=== PATIENT | female | born 2000 | race Caucasian/White ===

== ENCOUNTER 2019-05-16 15:43 | Emergency (ER) | payer OTHER ==
[~2019-05-16] VITALS: Ht 165.1 cm; Wt 68.8 kg
[2019-05-16] MEDS ORDERED: SODIUM CHLORIDE 0.9% 1,000ML IVBOLUS ONE (16:30)
[2019-05-16] MEDS ORDERED: HYDROmorphone 1 MG/ML, 1ML INJ IVPush PRN (16:30)
[2019-05-16] MEDS ORDERED: HYDROmorphone 1 MG/ML, 1ML VIAL ONE (16:42)
--- NOTE | 2019-05-16 16:45 | NUR ---
PT HAS BEEN ILL FOR SEVERAL WEEKS AND ON A FEW COURSES OF ANTIBIOTICS. SHE WAS DX WITH BRONCHITIS, THEN A SINUS INFECTION. PT HAD A FEVER OF 102 THIS WEEKEND AND STATES SHE ESPECIALLY FEELS LIKE SHE IS FEVERISH AT NIGHT. PT NOW HAS SWOLLEN GLANDS IN THROAT.
[2019-05-16 16:46] LABS: BASOPHILS # (AUTO) 0.03 x10^3/uL (0-0.3); BASOPHILS % (AUTO) 0 % (0-1); EOSINOPHILS # (AUTO) 0.02 x10^3/uL (0-0.8); EOSINOPHILS % (AUTO) 0 % (1-7); LYMPHOCYTES # (AUTO) 1.22 x10^3/uL (1-6.1); LYMPHOCYTES % (AUTO) 11 % (22-44); MD NO; MEAN CORPUSCULAR HEMOGLOBIN 31.3 pg (27.0-34.8); MEAN CORPUSCULAR HGB CONC 33.3 g/dL (32.4-35.8); MEAN CORPUSCULAR VOLUME 93.9 fL (80-100); MEAN PLATELET VOLUME 8.6 fL (7.4-10.4); MONOCYTES # (AUTO) 0.42 x10^3/uL (0-1.4); MONOCYTES % (AUTO) 4 % (2-9); NEUTROPHILS % (AUTO) 85 % (42-75); PLATELET COUNT 263 x10^3/uL (130-400); RED BLOOD COUNT 5.05 x10^6/uL (3.82-5.3); RED CELL DISTRIBUTION WIDTH 13.2 % (9.6-15.2)
[2019-05-16 16:58] LABS: ALANINE AMINOTRANSFERASE 34 U/L (12-78); ALBUMIN 4.1 g/dL (3.4-5.0); ANION GAP 7 mmol/L (5-15); CALCIUM 9.2 mg/dL (8.5-10.1); CHLORIDE 105 mmol/L (98-107); CREATININE 0.95 mg/dL (0.55-1.02)
[2019-05-16 17:01] LABS: ALKALINE PHOSPHATASE 105 U/L (45-117); BILIRUBIN,TOTAL 0.6 mg/dL (0.2-1.0); TOTAL PROTEIN 8.4 g/dL (6.4-8.2)
--- NOTE | 2019-05-16 17:08 | NUR ---
MEDICATED PER MAR AND IV FLUIDS INFUSING. SISTER AT BEDSIDE.
--- NOTE | 2019-05-16 17:58 | NUR ---
PAIN IMPROVED SINCE MEDICATED FOR SAME. AWAITING RE-EVAL
[2019-05-16 18:52] VITALS: BP 111/74
== END 2019-05-16 18:54 | disposition home or self-care (01) ==
LOC: ED 17:06
DX: L04.0 Acute lymphadenitis of face, head and neck (principal); R50.9 Fever, unspecified
CPT/HCPCS: 36415; 80053; 83605; 85025; 86308; 87040; 96374; 99283; J1170; J7030

== ENCOUNTER 2019-11-06 08:50 | Emergency (ER) | payer OTHER ==
[~2019-11-06] VITALS: Ht 165.1 cm; Wt 77.1 kg
[2019-11-06 08:58] VITALS: BP 129/93
[2019-11-06 09:57] LABS: BASOPHILS # (AUTO) 0.08 x10^3/uL (0-0.3); BASOPHILS % (AUTO) 1 % (0-1); EOSINOPHILS # (AUTO) 0.12 x10^3/uL (0-0.8); EOSINOPHILS % (AUTO) 2 % (1-7); LYMPHOCYTES # (AUTO) 2.41 x10^3/uL (1-6.1); LYMPHOCYTES % (AUTO) 37 % (22-44); MD NO; MEAN CORPUSCULAR HEMOGLOBIN 30.7 pg (27.0-34.8); MEAN CORPUSCULAR HGB CONC 32.8 g/dL (32.4-35.8); MEAN CORPUSCULAR VOLUME 93.4 fL (80-100); MEAN PLATELET VOLUME 9.3 fL (7.4-10.4); MONOCYTES # (AUTO) 0.37 x10^3/uL (0-1.4); MONOCYTES % (AUTO) 6 % (2-9); NEUTROPHILS # (AUTO) 3.58 x10^3/uL (1.8-8.0); NEUTROPHILS % (AUTO) 55 % (42-75); PLATELET COUNT 292 x10^3/uL (130-400); RED BLOOD COUNT 4.91 x10^6/uL (3.82-5.3); RED CELL DISTRIBUTION WIDTH 13.2 % (9.6-15.2)
[2019-11-06] MEDS ORDERED: ASPIRIN 81 MG TABLET CHEW ONE (09:58)
[2019-11-06] MEDS ORDERED: KETOROLAC 30 MG/1 ML ONE (09:58)
[2019-11-06] MEDS ORDERED: ASPIRIN 81 MG TABLET CHEW PO ONE (10:00)
[2019-11-06] MEDS ORDERED: SODIUM CHLORIDE FLUSH 10ML SYR IVF ONE (10:00)
[2019-11-06] MEDS ORDERED: KETOROLAC 30 MG/1 ML IVPush ONE (10:00)
[2019-11-06 10:10] LABS: ALBUMIN 3.7 g/dL (3.4-5.0); ANION GAP 7 mmol/L (5-15); CALCIUM 8.8 mg/dL (8.5-10.1); CHLORIDE 111 mmol/L (98-107); CREATININE 0.93 mg/dL (0.55-1.02)
[2019-11-06 10:14] LABS: TROPONIN I < 0.015 ng/mL (0.000-0.045)
== END 2019-11-06 11:04 | disposition home or self-care (01) ==
LOC: ED 09:21
DX: R07.89 Other chest pain (principal); R00.0 Tachycardia, unspecified; R94.31 Abnormal electrocardiogram [ECG] [EKG]
CPT/HCPCS: 36415; 71045; 80048; 82040; 84484; 85025; 85379; 93005; 96374; 99285; J1885

== ENCOUNTER 2020-08-05 17:35 | Emergency (ER) | payer OTHER ==
[~2020-08-05] VITALS: Ht 165.1 cm; Wt 78.4 kg
[2020-08-05] MEDS ORDERED: LIDOCAINE-MPF 1%, 5ML INFIL ONE (18:30)
--- NOTE | 2020-08-05 19:44 | NUR ---
PT TO ROOM FROM LOBBY AT THIS TIME, STEADY GAIT NO ASSIST REQ
[2020-08-05] MEDS ORDERED: LIDOCAINE-MPF 1%, 5ML ONE (19:49)
[2020-08-05] MEDS ORDERED: ONDANSETRON ODT 4 MG PO ONE (20:00)
[2020-08-05] MEDS ORDERED: HYDROcodone/APAP 5/325 TABLET PO ONE (20:00)
[2020-08-05] MEDS ORDERED: ONDANSETRON ODT 4 MG ONE ×2 (20:25→20:29)
[2020-08-05] MEDS ORDERED: HYDROcodone/APAP 5/325 TABLET ONE ×2 (20:26→20:30)
[2020-08-05 20:50] VITALS: BP 132/76
== END 2020-08-05 20:52 | disposition home or self-care (01) ==
LOC: ED 20:24
DX: L05.01 Pilonidal cyst with abscess (principal); Z90.89 Acquired absence of other organs
CPT/HCPCS: 10080; 99283; Q0162; 99284

== ENCOUNTER 2020-08-07 11:15 | Emergency (ER) | payer OTHER ==
[~2020-08-07] VITALS: Ht 165.1 cm; Wt 77.0 kg
[2020-08-07 11:17] VITALS: BP 130/87
--- NOTE | 2020-08-07 11:25 | NUR ---
assumed care of pt. pt here for wound recheck of packing to ascess in buttock pt reports that she has had drainage and that her packing is still in place pt also reports that she hs a F/U with a surgeon today for eval Dr. Armando at bedside for eval
[2020-08-07] MEDS ORDERED: [UNRECOGNIZED DRUG - CODE] PO (11:34)
[2020-08-07] MEDS ORDERED: SERT-331 PO (11:34)
== END 2020-08-07 11:56 | disposition home or self-care (01) ==
LOC: ED 11:30
DX: L05.01 Pilonidal cyst with abscess (principal)
CPT/HCPCS: 99281; 99283